=== PATIENT | female | born 1990 | race Caucasian/White ===

== ENCOUNTER 2022-12-04 22:37 | Emergency (ER) | payer OTHER ==
[~2022-12-04] VITALS: Ht 167.7 cm; Wt 101.2 kg
[~2022-12-04 22:37] MED LIST: PREN1TAB39 PO
[2022-12-04 22:41] VITALS: BP 130/98
[2022-12-04] MEDS ORDERED: DULO40CA2 PO (22:59)
--- NOTE | 2022-12-04 22:59 | ED General ---
General Chief Complaint: General Problems/Pain Stated Complaint: TRAVELING W/O MEDS Nursing Triage Note: Patient states that she is traveling here from [place] to help her mother move to [place]. Patient realized that she forgot her medications at home and that the clinic that she goes to in [place] is closed until Thursday. Patient states that she takes Cymbalta and wants the doctor to write a prescription for that medication. History of Present Illness Date Seen by Provider: Dec 04, 2022 Time Seen by Provider: 22:56 Initial Comments 32-year-old female presents to see if she get a short-term medication refill. Patient is traveling here from [place] she forgot her duloxetine that she uses for anxiety. She normally takes 40 mg daily. She reports that she has been through withdrawals before and does not want do that again. She is here for about 4 days and her doctor's office is closed until next Thursday so she cannot come get a refill. Patient has no other complaints at this time. Allergies and Home Medications Allergies Coded Allergies: Latex (Unverified Allergy, Unknown, 10/14/10) Patient Home Medication List Home Medication List Reviewed: Yes Vits W-Ca,Fe,Fa(<1MG) () 1 Each Tablet, 1 EACH PO DAILY, (Reported) Entered as Reported by: PRABHAKAR MAYO on 10/14/102212 Review of Systems Review of Systems Constitutional: no symptoms reported EENTM: no symptoms reported Respiratory: no symptoms reported Cardiovascular: no symptoms reported Gastrointestinal: no symptoms reported Genitourinary: no symptoms reported Skin: no symptoms reported Past Vpkwdkm-Uewnyi-Xrmgog Hx Patient Social History Tobacco Use?: No Use of E-Cig and/or Vaping Armando: Current Everyday User Substance type: Marijuana Alcohol Use?: No Pt feels they are or have been: No Immunizations Up To Date COVID19 Vaccine 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 oz. 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 She is stable and discharged Departure Impression Primary Impression: No mechanism for timely refill of medication Disposition: 01 HOME, SELF-CARE Condition: Stable Departure-Patient Inst. Referrals: DEMOND ALVARADO MD (PCP/Family) Primary Care Physician Scripts Duloxetine HCl (Duloxetine HCl) 40 Mg Capsule. 40 MG PO DAILY, #5 CAP Prov: MANJEET WATSON DO 12/04/22 MANJEET WATSON DO Dec 04, 2022 22:59
== END 2022-12-04 23:00 | disposition home or self-care (01) ==
LOC: EDUNIT# 22:37 → ER FS 22:39
DX: Z76.0 Encounter for issue of repeat prescription (principal); F17.200 Nicotine dependence, unspecified, uncomplicated
CPT/HCPCS: 99281